=== PATIENT | female | born 1935 | race African-American/Black ===

== ENCOUNTER 2019-04-20 19:39 | Observation (INO) ==
[2019-04-20 20:47] LABS: Basophils % 0.4 % (0.0-0.8); Eosinophils % 0.4 % (0.00-10.9); Hematocrit 42.1 VOL% (35.7-47.0); Hemoglobin 13.8 GM/DL (12.0-16.0); Immature Granulocytes % 0.1 %; Immature Granulocytes Absolute 0.01 #; Lymphocytes # 1.3 10*3/uL (1.4-4.0); Lymphocytes % 18.6 % (21.3-54.2); Mean Corpuscular HGB Conc 32.8 GM/DL (32-36); Mean Corpuscular Volume 91.1 FL (87-102); Mean Platelet Volume 12.2 FL (9.6-12.0); Monocytes % 9.6 % (1.7-12.7); Neutrophils % 70.9 % (38.7-73.9); Platelet Count 145 T/CUMM (130-400); Red Blood Count 4.62 MC/CUMM (3.8-5.5); Red Cell Distribution Width 13.9 % (9.3-17.3); White Blood Count 7.2 T/CUMM (4-12)
[2019-04-20 21:13] LABS: Alanine Aminotransferase 30 U/L (13-56); Albumin 3.5 G/DL (3.4-5.0); Alkaline Phosphatase 85 U/L (45-117); Aspartate Amino Transferase 32 U/L (0-37); Bilirubin,Total < 0.39 MG/DL (0.2-1.0); Blood Urea Nitrogen 13 MG/DL (7-18); Calcium 8.6 MG/DL (8.5-10.1); Glucose 149 MG/DL (74-106); Osmolality,Calculated 285.1 MOS/KG (273-304); Total Protein 7.1 G/DL (6.4-8.3)
[2019-04-20] MEDS ORDERED: NITROGLYCERIN SL 0.4 MG TABLET SL STA (21:23)
[2019-04-20] MEDS ORDERED: ASPIRIN EC 325 MG TABLET PO STA (21:23)
[2019-04-20 21:37] LABS: Apearance,Urine CLEAR (Clear); Bacteria,Urine Occasional /HPF (Few); Bilirubin,Urine Negative (Negative); Blood, Urine Negative (Negative); Glucose,Urine (UA) 50 mg/dL (Negative); Ketones,Urine Negative (Negative); Nitrite,Urine Negative (Negative); Protein,Urine Negative; RBC,Urine <1 /HPF (0-4); Squamous Epithelial Cell,Urine Occasional /HPF (0-10); Urine Color Colorless (Yellow); Urine Specific Gravity 1.002 (1.001-1.035); Urine Urobilinogen < 2.0 EU/DL (0.2-1.0)
[2019-04-20] MEDS ORDERED: ONDANSETRON 4 MG/2 ML VIAL IV PRN (22:06)
[2019-04-20] MEDS ORDERED: ASPIRIN CHEW 81 MG TABLET PO STA (22:06)
[2019-04-20] MEDS ORDERED: NITROGLYCERIN SL 0.4 MG TABLET SL ONE (22:09)
[2019-04-21 06:10] LABS: Basophils % 0.5 % (0.0-0.8); Hematocrit 39.7 VOL% (35.7-47.0); Hemoglobin 13.1 GM/DL (12.0-16.0); Immature Granulocytes % 0.2 %; Immature Granulocytes Absolute 0.01 #; Lymphocytes % 14.8 % (21.3-54.2); Mean Corpuscular Volume 89.8 FL (87-102); Mean Platelet Volume 12.4 FL (9.6-12.0); Monocytes % 7.3 % (1.7-12.7); Neutrophils % 77.2 % (38.7-73.9); Platelet Count 130 T/CUMM (130-400); Red Blood Count 4.42 MC/CUMM (3.8-5.5); Red Cell Distribution Width 13.9 % (9.3-17.3); White Blood Count 6.6 T/CUMM (4-12)
[2019-04-21 06:48] LABS: Albumin 3.3 G/DL (3.4-5.0); Bilirubin,Total 0.5 MG/DL (0.2-1.0); Calcium 8.7 MG/DL (8.5-10.1); Osmolality,Calculated 283.1 MOS/KG (273-304); Total Protein 6.7 G/DL (6.4-8.3)
[2019-04-21] MEDS ORDERED: LORazepam 2 MG/1 ML VIAL IV PRN (09:09)
[2019-04-21] MEDS: ASPIRIN CHEW 81 MG TABLET PO SCH (09:12)
[2019-04-21] MEDS: ENOXAPARIN 40 MG/0.4 ML SYRINGE SUBCUT SCH ×2 (09:12→21:40)
[2019-04-21] MEDS ORDERED: LORazepam 2 MG/1 ML VIAL ONE (09:15)
[2019-04-21] MEDS ORDERED: ZIPRASIDONE 20 MG/1 ML VIAL IM PRN (09:34)
[2019-04-21 09:50] LABS: Risk Ratio 1.77; VLDL CHOLESTEROL 7.8 MG/DL
[2019-04-21] MEDS: LISINOPRIL 2.5 MG TABLET PO SCH (10:57)
[2019-04-21] MEDS: MEMANTINE 10 MG TABLET PO SCH ×2 (10:58→21:40)
[2019-04-21] MEDS: METOPROLOL SUCCINATE XL 25 MG TABLET PO SCH (10:58)
[2019-04-21] MEDS: INSULIN REGULAR 100 UNIT/ML SUBCUT SCH ×3 (11:30→22:25)
[2019-04-21] MEDS: POTASSIUM CHLORIDE 20 MEQ TABLET PO PRN ×3 (12:27→19:08)
[2019-04-21] MEDS: SODIUM CHLORIDE 0.9% 1,000 ML IV SCH (14:43)
[2019-04-21] MEDS ORDERED: ATORVASTATIN 20 MG TABLET PO SCH (21:00)
[2019-04-21] MEDS ORDERED: risperiDONE 1 MG TABLET PO SCH ×2 (21:00)
[2019-04-21] MEDS ORDERED: DONEPEZIL 10 MG TABLET PO SCH (21:00)
[2019-04-22] MEDS: SODIUM CHLORIDE 0.9% 1,000 ML IV SCH ×2 (00:35→10:33)
[2019-04-22 05:53] LABS: Calcium 8.2 MG/DL (8.5-10.1); Osmolality,Calculated 286.8 MOS/KG (273-304)
[2019-04-22] MEDS: INSULIN REGULAR 100 UNIT/ML SUBCUT SCH ×2 (08:15→11:56)
[2019-04-22] MEDS ORDERED: REGADENOSON 0.4 MG/5 ML SYRINGE IV ONE (08:28)
[2019-04-22] MEDS ORDERED: TAMOXIFEN 10 MG TABLET PO SCH (09:00)
[2019-04-22] MEDS ORDERED: sitaGLIPtin 25 MG TABLET PO SCH (09:00)
[2019-04-22] MEDS ORDERED: sitaGLIPtin 100 MG TABLET PO SCH (09:00)
[2019-04-22] MEDS ORDERED: amLODIPine 2.5 MG TABLET PO SCH (09:00)
[2019-04-22] MEDS: ENOXAPARIN 40 MG/0.4 ML SYRINGE SUBCUT SCH (10:40)
[2019-04-22] MEDS: ASPIRIN CHEW 81 MG TABLET PO SCH (10:41)
[2019-04-22] MEDS: LISINOPRIL 2.5 MG TABLET PO SCH (10:41)
[2019-04-22] MEDS: METOPROLOL SUCCINATE XL 25 MG TABLET PO SCH (10:42)
[2019-04-22] MEDS: MEMANTINE 10 MG TABLET PO SCH (10:42)
[2019-04-22 11:27] VITALS: BP 125/64
== END 2019-04-22 14:36 | disposition home or self-care (01) ==
LOC: N.ED 19:39 → N.EDINP 19:39 → N.TELEN 23:25
PROVIDERS: ADMIT Internal Medicine Cardiovascular Disease; ATTEND Internal Medicine Cardiovascular Disease